=== PATIENT | male | born 1995 | race Caucasian/White ===

== ENCOUNTER 2016-08-16 14:06 | Emergency (ER) | payer OTHER ==
[~2016-08-16] VITALS: Ht 190.5 cm; Wt 95.3 kg
--- NOTE | 2016-08-16 14:39 | NUR ---
Patient ambulated to bed 04.
--- NOTE | 2016-08-16 14:41 | NUR ---
Dr. Hernandez evaluating patient at bedside.
[2016-08-16 14:46] VITALS: BP 152/94
[2016-08-16] MEDS ORDERED: AZITHROMYCIN 250 MG TAB PO ONE (14:50)
--- NOTE | 2016-08-16 14:54 | NUR ---
20/M TO ED WITH C/O PENILE PAIN X4 DAYS WITH PAIN 5/10 AFTER HAVING INTERCOUSE WITH [facility] 1 WEEK AGO. PT STATES HE DOES NO HAVE DISCHARGE. LUNGS CLEAR BILAT. HR EVEN AND REGULAR. AAOX4. VSS. NO SIGNS OF DISTRESS.
[2016-08-16 15:10] VITALS: BP 152/94
--- NOTE | 2016-08-16 15:11 | NUR ---
Patient discharged with v/s stable. Written and verbal after care instructions given and explained. Patient alert, oriented and verbalized understanding of instructions. Ambulatory with steady gait. All questions addressed prior to discharge. ID band removed. Patient advised to follow up with PMD. Rx of CLOTRIMAzole given. Patient educated on indication of medication including possible reaction and side effects. Opportunity to ask questions provided and answered.
== END 2016-08-16 15:11 | disposition home or self-care (01) ==
LOC: MED 14:06
DX: Z11.3 Encounter for screening for infections with a predominantly sexual mode of transmission (principal); N48.1 Balanitis

== ENCOUNTER 2017-03-03 19:50 | Emergency (ER) | payer OTHER ==
--- NOTE | 2017-03-03 20:51 | NUR ---
PATIENT LEFT WITHOUT BEING SEEN BY DR. DR SALINAS. NO FURTHER CARE PROVIDED FOR PATIENT.
== END 2017-03-03 20:50 | disposition left against medical advice (07) ==
LOC: MED 19:50
DX: R10.9 Unspecified abdominal pain (principal); Z53.21 Procedure and treatment not carried out due to patient leaving prior to being seen by health care provider